=== PATIENT | female | born 1980 | race Caucasian/White ===

== ENCOUNTER 2017-07-03 11:27 | Inpatient (IN) | payer MEDICAID ==
[2017-07-03 12:10] LABS: BASOPHILS 0.5 % (0-2); HEMATOCRIT 43.7 % (36.0-48.0); HEMOGLOBIN 15.1 g/dL (12-16); IMMATURE GRANULOCYTES 0.1 % (0-5); LYMPHOCYTES 11.3 % (15-50); MCH 34.2 pg (26.0-34.0); MCHC 34.6 g/dL (31.0-37.0); MCV 99.1 fL (80.0-100.0); MEAN PLATELET VOLUME 10.1 fL (7.4-10.4); MONOCYTES 3.8 % (2-11); NEUTROPHILS 80.3 % (40-80); PLATELET COUNT 298 10x3/uL (130-400); RBC 4.41 10x6/uL (4.00-5.40); RDW 12.8 % (11.5-14.5); WBC 13.5 10x3/uL (4.8-10.8)
[2017-07-03 12:27] LABS: ALBUMIN 3.9 g/dL (3.4-5.0); ALKALINE PHOSPHATASE 77 U/L (46-116); ALT (SGPT) 29 U/L (10-68); BILIRUBIN - TOTAL 0.33 mg/dL (0.2-1.3); CALC OSMOLALITY 277 mosm/kg (275-300); CALCIUM 9.4 mg/dL (8.5-10.1); CARBON DIOXIDE 26.9 mmol/L (21.0-32.0); CHLORIDE - SERUM 101 mmol/L (98-107); CREATININE - SERUM 0.7 mg/dL (0.6-1.3); GLUCOSE 143 mg/dL (74-106); POTASSIUM - SERUM 4.3 mmol/L (3.5-5.1); PROTEIN - SERUM 8.4 g/dL (6.4-8.2); SODIUM 137 mmol/L (136-145); UREA NITROGEN 18 mg/dL (7-18); eGFR NON AFRICAN AMERICAN > 90 mL/min (90-120)
[2017-07-03 12:31] LABS: TROPONIN-I < 0.017 ng/mL (0.000-0.060)
[2017-07-03 18:27] VITALS: BP 151/95
--- NOTE | 2017-07-03 18:28 | NUR ---
PT RECIEVED TO ROOM FROM ER. RR EVEN, LABORED. PT REPORTS HAVING DIFFICULTY BREATHING. O2 SAT IS CURRENTLY 92 ON 5L. PT IS ALERT AND ORIENTED X4. WILL GIVE REPORT ON PT AND CTM UNITL SHIFT CHANGE.
[2017-07-03 19:00] VITALS: BP 164/84
--- NOTE | 2017-07-03 19:12 | NUR ---
PT SITTING UP IN BED. DENIES NEEDS AT THIS TIME. SOME DYSPNEA NOTED. WILL CONTINUE TO MONITOR.
--- NOTE | 2017-07-04 02:33 | NUR ---
PT IN BED RECIEVING BREATHING TREATMENT DENIES NEEDS AT THIS TIME WILL CONTINUE TO MONITOR
[2017-07-04 04:00] VITALS: BP 114/81
--- NOTE | 2017-07-04 07:30 | NUR ---
REPORT RECIEVED. PT SITTING UP IN BED, PT HAVING DYSPNEA. ALERT AND ORIENTED X4. ASSESSMENT PERFORMED. EXPLAINED PLAN FOR THE DAY, WILL CTM.
[2017-07-04 08:40] LABS: HCG URINE NEGATIVE (NEGATIVE)
[2017-07-04 08:56] LABS: UDS - AMPHET NEGATIVE QUAL (NEGATIVE); UDS - BARB NEGATIVE QUAL (NEGATIVE); UDS - BENZO NEGATIVE QUAL (NEGATIVE); UDS - COCAINE NEGATIVE QUAL (NEGATIVE); UDS - METH NEGATIVE QUAL (NEGATIVE); UDS - OPIATE POSITIVE QUAL (NEGATIVE); UDS - PCP NEGATIVE QUAL (NEGATIVE); UDS - THC NEGATIVE QUAL (NEGATIVE)
[2017-07-04 12:00] VITALS: BP 134/74
[2017-07-04 17:54] VITALS: BP 94/58
--- NOTE | 2017-07-04 18:30 | NUR ---
PT RESTING QUILETY, PT DENIES NEEDS AT THIS TIME. RR EVEN AND UNLABORED. FAMILY AT BEDSIDE. WILL GIVE REPORT ON PT CONDITION FOR THE DAY.
--- NOTE | 2017-07-04 19:39 | NUR ---
PT IN BED. DENIES NEEDS AT THIS TIME. FAMILY AT BEDSIDE. WILL CONTINUE TO MONITOR.
[2017-07-04 20:00] VITALS: BP 131/66
--- NOTE | 2017-07-04 23:28 | NUR ---
IV RESITED AT THIS TIME. REMOVED WITH CATHETER TIP INTACT. IV RESITED TO LEFT FOREARM
--- NOTE | 2017-07-04 23:30 | NUR ---
NOTICED BOTTLE SHAPED OBJECT WRAPPED IN A BROWN PAPER SACK NEXT TO PTS BED ON THE FLOOR. WHEN ASKED ABOUT THE OBJECT PT STATED "OH, ITS A BEER." UNSURE ABOUT THE AMOUNT THAT PT HAD DRANK AT THIS TIME BECUASE BOTTLE WAS WRAPPED UP IN SACK. I EXPLAINED TO PT THAT SHE WAS NOT ALLOWED TO DRINK ALCOHOL AT THIS FACILTY WITHOUT A PHYSICIAN ORDER. I FURTHER EXPLAINED THAT I WOULD BE UNABLE TO GIVE ANY OF THE XANAX SHE IS ORDERED. PT THEN STATED "THATS FINE" AT 0100 THIS MORNING I NOTICED THAT BOTTLE WAS EMPTY AND LOCATED IN THE TRASH.
--- NOTE | 2017-07-05 00:21 | NUR ---
PT AWAKE; DENIES ANY DISCOMFORT. WILL CONTINUE TO MONITOR.
--- NOTE | 2017-07-05 07:42 | NUR ---
AM ROUNDS - PT IN BED WITH AND APPEARS TO BE SLEEPING WITH EQUALA ND NON LABORED BREATHING. IV TO LEFT FA, 1/2 D5 @ 125CC/HR. PT IS ON 6L NC. BED AT LOWEST POSITION. CALL LY IN USE/REACH. SIDE RAILS UP X2. WILL CONTINUE OT MONITOR
[2017-07-05 08:10] VITALS: BP 102/63
[2017-07-05 12:32] VITALS: BP 131/78
--- NOTE | 2017-07-05 15:13 | NUR ---
PT IN BED WITH NO NEEDS AT THIS TIME. WILL CONTINUE TO MONITOR
[2017-07-05 15:39] VITALS: BP 104/53
--- NOTE | 2017-07-05 19:38 | NUR ---
PT IN BED WATCHING TELEVISION. DAUGHTER AT BEDSIDE. DENIES NEEDS AT THIS TIME. WILL CONTINUE TO MONITOR.
[2017-07-05 20:32] VITALS: BP 126/78
[2017-07-06 01:18] VITALS: BP 121/62
[2017-07-06 05:55] VITALS: BP 120/763
[2017-07-06 08:05] VITALS: BP 108/74
--- NOTE | 2017-07-06 08:22 | NUR ---
PT AOX4 RESP EVEN AND NONLABORED IV TO LEFT FOREARM PATENT AND INTACT AT THIS TIME SRX2 BED AT LOWEST SETTING CALL LIGHT WITHIN REACH WILL CONTINUE TO MONITOR
--- NOTE | 2017-07-06 14:23 | NUR ---
IV RESTARTED BY JANIE BAEZ WITH 22 GAUGE CATH X 1 STICK AND FLUSHED WITH NS. LINE IS PATENT.
[2017-07-06 15:09] VITALS: BP 124/77
[2017-07-06] MEDS ORDERED: MEDROL DOSE PACK4 MG PO (15:41)
[2017-07-06] MEDS ORDERED: VENTOLIN HFA18 GM INH (15:41)
[2017-07-06] MEDS ORDERED: ZITHROMAX250 MG PO (15:41)
--- NOTE | 2017-07-06 17:22 | NUR ---
IV AND TELEMETRY DCD. DC PLANS GIVEN. UNDERSTANDING VOICED.
== END 2017-07-06 17:22 | disposition home or self-care (01) | DRG 202 ==
LOC: D.ER 11:27 → D.M2 14:48 → D.SDCHOLD 14:48 → D.M2 17:09
PROVIDERS: Emergency Medicine; ADMIT Family Medicine
DX: J20.9 Acute bronchitis, unspecified (principal); J45.901 Unspecified asthma with (acute) exacerbation; Z72.0 Tobacco use

== ENCOUNTER 2018-08-29 10:00 | Emergency (ER) | payer MEDICAID ==
[~2018-08-29] VITALS: Ht 160 cm; Wt 59.1 kg
[~2018-08-29 10:00] MED LIST: MEDROL DOSE PACK4 MG PO; VENTOLIN HFA18 GM INH; ZITHROMAX250 MG PO
[2018-08-29 10:03] VITALS: Ht 160 cm; Wt 59.1 kg
[2018-08-29] MEDS ORDERED: MUCUS RELIEF400 MG PO (10:05)
[2018-08-29] MEDS ORDERED: KEFLEX500 MG PO (10:32)
[2018-08-29] MEDS ORDERED: PROVENTIL/2.5 MG/3 M INH (10:34)
[2018-08-29 10:41] LABS: BASOPHILS 0.9 % (0-2); EOSINOPHILS 8.3 % (0-7); HEMATOCRIT 46.4 % (36.0-48.0); HEMOGLOBIN 15.5 g/dL (12-16); IMMATURE GRANULOCYTES 0.1 % (0-5); LYMPHOCYTES 30.5 % (15-50); MCH 34.4 pg (26.0-34.0); MCHC 33.4 g/dL (31.0-37.0); MCV 103.1 fL (80.0-100.0); MEAN PLATELET VOLUME 10.1 fL (7.4-10.4); MONOCYTES 5.8 % (2-11); NEUTROPHILS 54.4 % (40-80); PLATELET COUNT 296 10x3/uL (130-400); RDW 12.2 % (11.5-14.5); WBC 10.3 10x3/uL (4.8-10.8)
[2018-08-29 10:59] LABS: ALBUMIN 4.2 g/dL (3.4-5.0); ALKALINE PHOSPHATASE 62 U/L (46-116); ALT (SGPT) 24 U/L (10-68); BILIRUBIN - TOTAL 0.33 mg/dL (0.2-1.3); CALC OSMOLALITY 280 mosm/kg (275-300); CALCIUM 9.2 mg/dL (8.5-10.1); CHLORIDE - SERUM 103 mmol/L (98-107); CREATININE - SERUM 0.7 mg/dL (0.6-1.3); GLUCOSE 161 mg/dL (74-106); POTASSIUM - SERUM 3.5 mmol/L (3.5-5.1); SODIUM 139 mmol/L (136-145); UREA NITROGEN 12 mg/dL (7-18); eGFR NON AFRICAN AMERICAN > 90 mL/min (90-120)
[2018-08-29 11:29] VITALS: BP 127/91
== END 2018-08-29 11:30 | disposition home or self-care (01) ==
LOC: D.ER 10:00
PROVIDERS: Emergency Medicine
DX: J40 Bronchitis, not specified as acute or chronic (principal); F17.200 Nicotine dependence, unspecified, uncomplicated